=== PATIENT | male | born 1930 | race Caucasian/White ===

== ENCOUNTER 2017-01-01 13:04 | Outpatient (CLI) | payer MEDICARE, BC ==
--- NOTE | 2017-01-01 14:18 | XRAY Report ---
THREE-VIEW LEFT SHOULDER: 01/01/2017 CLINICAL INDICATION: Contusion, pain. FINDINGS: Internal and external rotational views and a scapular Y view of the left shoulder demonstr ate osteoarthritis of the glenohumeral joint, with osteophytes. There is no evidence of acute fractu re or dislocation. No radiopaque foreign body is noted in the soft tissues. Changes of previous car diac surgery are incidentally noted. IMPRESSION: OSTEOARTHRITIS. NO EVIDENCE OF ACUTE FRACTURE. JOB #: [id number] EXT JOB #:[id number]
== END 2017-01-01 13:05 | disposition home or self-care (01) ==
LOC: DI 13:04
PROVIDERS: ATTEND Family Medicine
DX: M19.012 Primary osteoarthritis, left shoulder (principal)

== ENCOUNTER 2018-02-03 16:24 | Emergency (ER) | payer MEDICARE, BC ==
[2018-02-03] MEDS ORDERED: AMOX/CLAV 875 MG/125 MG TABLET PO STA (17:54)
--- NOTE | 2018-02-03 17:56 | ED Physician Documentation ---
History of Present Illness - Stated complaint Stated Complaint: CAT BITE LF HAND - Chief complaint Chief Complaint: General - History obtained from History obtained from: Patient - History of Present Illness Timing: Other (He was bit by his own cat to the left hand today. He is up-to-date on tetanus. He has moderate pain. No other injuries.) Review of Systems Constitutional: denies: Fever, Chills GI: denies: Abdominal Pain, Nausea, Vomiting : reports: Reviewed and negative PD PAST MEDICAL HISTORY - Past Medical History Cardiovascular: Hypertension - Present Medications Home Medications: Ambulatory Orders Medication Instructions Recorded Confirmed Lisinopril 20 mg PO DAILY 03/29/16 03/29/16 Simvastatin 40 mg PO DAILY 03/29/16 03/29/16 Amox/Clav 875/125 [Augmentin 1 tab PO BID 10 Days #20 tablet 02/03/18 875/125] - Allergies Allergies/Adverse Reactions: Allergies Allergy/AdvReac Type Severity Reaction Status Date / Time No Known Drug Allergies Allergy Verified 02/03/18 16:38 - Social History Does the pt smoke?: No Smoking Status: Never smoker Does the pt have substance abuse?: No PD ED PE NORMAL - Vitals Vital signs reviewed: Yes - General General: Alert and oriented X 3, No acute distress - Extremities Extremities: Other (There is multiple puncture wounds about the left dorsum of the hand and palm, good range of motion, some tenderness over the distal carpals.) - Neuro Neuro: Alert and oriented X 3, Normal speech Results - Vitals Vitals: Vital Signs - 24 hr 02/03/18 16:34 Temperature 36.4 C L Heart Rate 83 Respiratory 20 Rate Blood Pressure 161/83 H O2 Saturation 98 Oxygen O2 Source Room air - Rads (name of study) L hand 3v XR Radiology: EMP read contemporaneously (NAD) PD MEDICAL DECISION MAKING - Sepsis Event Vital Signs: Vital Signs - 24 hr 02/03/18 16:34 Temperature 36.4 C L Heart Rate 83 Respiratory 20 Rate Blood Pressure 161/83 H O2 Saturation 98 Oxygen O2 Source Room air Departure - Departure Disposition: 01 Home, Self Care Clinical Impression: Cat bite of left hand Qualifiers: Encounter type: initial encounter Qualified Code(s): S61.452A - Open bite of left hand, initial encounter; W55.01XA - Bitten by cat, initial encounter Condition: Good Record reviewed to determine appropriate education?: Yes Instructions: ED Bite Cat Prescriptions: Amox/Clav 875/125 [Augmentin 875/125] 1 tab PO BID 10 Days #20 tablet Comments: Return for any signs of infection, redness, swelling, drainage, increased pain. Your blood pressure was elevated today on check into the emergency department. This does not mean that you have hypertension, it is a common phenomenon to come to the emergency department and have elevated blood pressure. I recommend that you see your primary care physician within the week to have it rechecked when you are feeling better.
--- NOTE | 2018-02-03 18:22 | XRAY Report ---
Reason: hand inj Procedure Date: 02/03/2018 Accession Number: [id number] / [id number] Procedure: XR - Hand 3 View LT CPT Code: FULL RESULT: EXAM: LEFT HAND RADIOGRAPHY EXAM DATE: 02/03/2018 06:09 PM. CLINICAL HISTORY: Hand inj. COMPARISON: None. TECHNIQUE: 3 views. FINDINGS: Bones: There is heterogeneous density of the carpal bones of the wrist. There are multiple periarticular ossifications at the wrist. There is spurring of the first interphalangeal joint and multiple PIP and DIP joints. No acute fracture is identified. Joints: No dislocation. Soft Tissues: There is generalized soft tissue swelling. IMPRESSION: 1. Generalized soft tissue swelling. 2. 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 3. No visualized acute fracture. [facility]
[2018-02-03 19:07] VITALS: BP 152/66
== END 2018-02-03 19:07 | disposition home or self-care (01) ==
LOC: ED 16:24
DX: S61.452A Open bite of left hand, initial encounter (principal); W55.01XA Bitten by cat, initial encounter; Y93.89 Activity, other specified; I10 Essential (primary) hypertension
CPT/HCPCS: 73130; 99283; A9270